=== PATIENT | female | born 1960 | race African-American/Black ===

== ENCOUNTER 2023-02-01 13:37 | Emergency (ER) | payer MEDICAID ==
[~2023-02-01] VITALS: Ht 154.9 cm; Wt 94.4 kg
[2023-02-01 14:08] LABS: Basophils # (auto) 0 10 ^3/uL (0-0.2); Basophils % (auto) 0.6 % (0.0-2.0); Eosinophils # (auto) 0.1 10 ^3/uL (0-0.8); Eosinophils % (auto) 2.2 % (0.0-7.0); Hematocrit 39.3 % (36.0-46.0); Hemoglobin 13.1 g/dL (12.2-16.2); Lymphocytes # (auto) 2.6 10 ^3/uL (0.4-5.4); Lymphocytes % (auto) 51.8 % (10.0-50.0); Mean Corpuscular Hemoglobin 28.7 pg (28.0-32.0); Mean Corpuscular Hgb Conc. 33.4 g/dL (32.0-36.0); Mean Corpuscular Volume 85.9 fL (80.0-100.0); Monocytes # (auto) 0.3 10 ^3/uL (0-1.3); Monocytes % (auto) 6.8 % (0.0-12.0); Neutrophils # (auto) 1.9 10 ^3/uL (1.6-8.6); Neutrophils % (auto) 38.6 % (37.0-80.0); Nucleated Red Blood Cells % 0.1 %; Red Blood Cells 4.58 10^6/uL (4.0-5.20); Red Cell Distribution Width 14.1 % (11.8-14.3)
[2023-02-01 14:30] LABS: Alanine Aminotransferase 20 U/L (7-40); Albumin 4.5 g/dL (3.2-4.8); Alkaline Phosphatase 114 U/L (46-116); Anion Gap 6 (5-15); Aspartate Aminotransferase 10 U/L (13-40); BUN/Creatinine Ratio 8.9 (10.0-20.0); Bilirubin, Total 0.4 mg/dL (0.2-1.0); Blood Urea Nitrogen 8 mg/dL (9-23); Calcium 10.2 mg/dL (8.7-10.4); Carbon Dioxide 26 mmol/L (20-30); Chloride 108 mmol/L (98-107); Glucose 105 mg/dL (74-106); Potassium 4.4 mmol/L (3.5-5.1); Sodium 140 mmol/L (136-145); Total Protein 7.1 g/dL (5.7-8.2)
[2023-02-01] MEDS ORDERED: MECL25CH38 PO (14:52)
[2023-02-01] MEDS ORDERED: MECLIZINE HCL 25 MG TAB PO ONE (15:00)
[2023-02-01 16:55] VITALS: BP 135/64; PULSE 75; RESP 18; TEMP 97.5; O2SAT 98
== END 2023-02-01 16:58 | disposition home or self-care (01) ==
LOC: ER 13:37
DX: R42 Dizziness and giddiness (principal); E11.9 Type 2 diabetes mellitus without complications; I10 Essential (primary) hypertension; J45.909 Unspecified asthma, uncomplicated; Z79.899 Other long term (current) drug therapy
CPT/HCPCS: 36415; 70450; 80053; 82962; 84484; 85025; 93005; 99284; J8597

== ENCOUNTER → 2024-07-21 | Day surgery (SDC) | payer MEDICAID ==
[2024-07-18 16:12] LABS: Urine Bacteria MANY /hpf (None Seen); Urine Blood Negative /uL (Negative); Urine Clarity Clear (Clear); Urine Color Colorless (Yellow); Urine Protein, UAD Negative (Negative); Urine Specific Gravity 1.007 (1.001-1.035); Urine Squamous Epithelial Cell FEW /hpf (<5); Urine Urobilinogen Normal (Negative); Urine WBC 1 /HPF (0-5)
[2024-07-18 16:13] LABS: Hemoglobin 13.6 g/dL (12.2-16.2); Mean Corpuscular Hemoglobin 28.5 pg (28.0-32.0); Mean Corpuscular Hgb Conc. 33.1 g/dL (32.0-36.0); Mean Corpuscular Volume 86.2 fL (80.0-100.0); Platelet Count (auto) 403 10^3/uL (140-450); Red Blood Cells 4.76 10^6/uL (4.0-5.20); Red Cell Distribution Width 13.7 % (11.8-14.3); White Blood Cell 5.3 10^3/uL (4.4-10.8)
[2024-07-18 16:33] LABS: Alanine Aminotransferase 15 U/L (7-40); Alkaline Phosphatase 89 U/L (46-116); Anion Gap 8 (5-15); Aspartate Aminotransferase 19 U/L (13-40); BUN/Creatinine Ratio 10.1 (10.0-20.0); Blood Urea Nitrogen 9 mg/dL (9-23); Carbon Dioxide 27 mmol/L (20-31); Chloride 105 mmol/L (98-107); Glucose 79 mg/dL (74-106); Potassium 3.6 mmol/L (3.5-5.1); Sodium 140 mmol/L (136-145); Total Protein 7.5 g/dL (5.7-8.2)
[2024-07-18 16:34] LABS: Albumin 4.9 g/dL (3.2-4.8); Band Neutrophils % (manual) 0; Basophils % (manual) 0 (0.0-2.0); Bilirubin, Total 0.6 mg/dL (0.2-1.0); Blast Cells 0; Calcium 10.4 mg/dL (8.7-10.4); Metamyelocytes % 0; Myelocytes % 0; Promyelocytes % 0; Reactive Lymphocytes 0
[2024-07-18 16:35] LABS: INR 0.96 (0.9-1.15); Partial Thromboplastin Time 23.6 SEC (24.5-34.5); Prothrombin Time 10.2 sec (9.3-11.8)
[2024-07-18 17:30] LABS: Eosinophils % (manual) 2 (0-7); Lymphocytes % (manual) 61 (10.0-50.0); Monocytes % (manual) 2 (0-12); Platelet Estimate Adequate
--- NOTE | 2024-07-19 09:47 | DVHHP ---
ADMIT DATE: 07/21/2024 DATE OF SURGERY: 07/21/2024 CHIEF COMPLAINT: Persistent postmenopausal bleeding. HISTORY OF PRESENT ILLNESS: This is a 63-year-old -[place] female. She is 6, para 4 with 2 abortions. The patient has had persistent episodic [id number] postmenopausal bleeding since 2022. Last ultrasound revealed that the endometrial thickness had increased from 4 mm on prior study to 6.8 mm, with endometrial fluid present. The patient is also on hormone replacement therapy with estrogen and progesterone due to menopausal syndrome. The patient is also HIV positive. Her last episode of bleeding was approximately 06/27/2024. PAST MEDICAL HISTORY: Asthma, autoimmune disease, diabetes, depression, chronic bronchitis, obesity, scoliosis and vertigo. PAST SURGICAL HISTORY: Carpal tunnel surgery. 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 MEDICATIONS: See list. ALLERGIES: No known drug allergies. SOCIAL HISTORY: The patient denies any alcohol, tobacco or illicit drug use. FAMILY HISTORY: Noncontributory. REVIEW OF SYSTEMS: The 14-point review of systems is negative as otherwise stated in the history of present illness. PHYSICAL EXAMINATION: VITAL SIGNS: Blood pressure 124/78. GENERAL: She is alert, pleasant, appears her stated age, in no acute distress. HEENT: Normocephalic, atraumatic. EOMI. NECK: Supple. No palpable masses or thyromegaly. CHEST: Symmetrical. Normal S1, S2 heart sounds. PULMONARY: Clear to auscultation bilaterally. ABDOMEN: Obese, soft, nontender, no palpable masses. EXTREMITIES: Without cyanosis or edema. PELVIC: Deferred to the operating room. ASSESSMENT: * Persistent postmenopausal bleeding. * Endometrial thickness of 6.8 mm, abnormal for menopausal status. * Menopausal syndrome, on combination estrogen and progestin hormone replacement therapy. * HIV positive. PLAN: The patient will be admitted for outpatient procedure. She has consented for: Pelvic exam under anesthesia, operative hysteroscopy, dilation and curettage, MyoSure polypectomy. The risks, benefits and alternatives to the procedure have been discussed with the patient and informed consent has been obtained. Risks of pain, bleeding, infection, injury to adjacent organs, possible uterine perforation all discussed with the patient and possible need for further subsequent treatment have all been reviewed with the patient. DO JADIEL Murphy/DENIS TID: [id number] RECEIPT: [id number] MTDD
[~2024-07-21] VITALS: Ht 154.9 cm; Wt 92.1 kg
[~2024-07-21] MED LIST: ALBU2TAB11 PO; APRE30TA PO; ATOR20TA50 PO; BENZ200C64 PO; BROMELX37 PO; BUPR-346 PO; CEL100T PO; DOLU50TA OR; DexAMETHasone SOD PHOS 10MG/1ML VIAL INJ ONE; EMTR1TAB6 PO; ESTR1TAB6 PO; GABA-339 PO; HYDROmorphone HCL 2 MG/ML VL/or syr IV PRN; MECL25CH38 PO; MEDR2.5T5 PO; MEPERIDINE HCL (25 MG/ML) 1ML VIAL ONE; METF-370 PO; METH-1181 PO; METH-867 PO; MIDAZOLAM HCL 2MG/2ML 2ml VIAL (1mg/ml) IV PRN; MIDAZOLAM HCL 2MG/2ML 2ml VIAL (1mg/ml) ONE; MORPHINE SULFATE 4 MG/ML SYR/VIAL IV PRN; OMEP20TA PO; ONDANSETRON HCL 4 MG/2 ML VIAL IV ONE; PERCOT PO; PROPOFOL 10 MG/ML 20 ML IV ONE; SERT-377 PO; ePHEDrine SULFATE 50 MG/ML AMP IV PRN; fentaNYL CITRATE 100 MCG/2 ML VL ONE; hydrALAZINE HCL 20 MG/ML VL IV PRN
--- NOTE | 2024-07-21 10:07 | DVHPN2 ---
Visit Coding OBGYN Date of Service: Jul 21, 2024 Billing Provider: CHARY DALEY DO LICENSE DISTRIBUTOR Common Visit Codes: PROCEDURE ONLY LICENSE DISTRIBUTOR Procedure Codes: 82816-T&C, DIAG OR THERAPEUTIC, 48550-[id number], SURGICAL CHARY DALEY DO Jul 21, 2024 10:07
[2024-07-21] MEDS: ceFAZolin 2 GM/D5W100ml 100 ML IV ONE (10:20)
[2024-07-21 11:05] VITALS: TEMP 99.5; O2SAT 100
[2024-07-21 11:45] VITALS: BP 135/60; PULSE 60; RESP 13; O2SAT 97
--- NOTE | 2024-07-21 12:24 | DVHOP ---
DATE OF SURGERY: 07/21/2024 PREOPERATIVE DIAGNOSES: * Persistent postmenopausal bleeding. * Thickened endometrium on ultrasound. * Suspected Endometrial Polyp FINAL DIAGNOSES: * Persistent postmenopausal bleeding. * Thickened endometrium on ultrasound. * Endometrial polyp. PROCEDURES PERFORMED: * Pelvic exam under anesthesia. * Operative hysteroscopy. * MyoSure polypectomy. * Sharp uterine dilatation and curettage. SURGEON: Luke Morton DO PULP BLEACHER: None. TYPE OF ANESTHESIA: General. ANESTHESIOLOGIST: Dr. Kaushik Chery M.D. DESCRIPTION OF FINDINGS: A normal sized uterus. Uterus is with moderate prolapse. Cervix prolapses to the hymenal ring. No gross evidence of malignancy. Uterine cavity sounds to 8 cm. Hysteroscopy revealed a normal contour endometrial cavity. Bilateral tubal ostia were successfully visualized. There was thickened lining of the endometrium noted on hysteroscopy without any tumors or lesions. There was a small less than 1 cm polypoid tissue fragment in the endometrial cavity that was removed by MyoSure polypectomy. TECHNICAL PROCEDURE: After informed consent was obtained, the patient was taken to the operating room where she underwent smooth induction of general anesthesia. The patient was placed in dorsal lithotomy position. The vagina, perineum were thoroughly prepped and the patient sterilely draped in the usual fashion. A pelvic exam was then performed under anesthesia with the above noted findings. A weighted speculum was placed in the patient's vagina. The anterior lip of the cervix was grasped with a single tooth tenaculum. Uterine cavity was sounded to 8 cm. The cervix was already soft, so minimal dilation was necessary. A 6 mm hysteroscope was inserted through the cervix and into the uterine cavity under direct visualization. Normal saline was used as the distention medium. Survey of the endocervix and endometrial cavities was performed with the above noted findings. Bilateral tubal ostia were seen. There was a thickened endometrium and a small tiny polyp. Using the MyoSure device, the polyp and part of the endometrium was resected. This was collected and submitted to pathology. Next, a sharp uterine curettage was performed and the endometrial curettings obtained on a Telfa pad and submitted to pathology. Repeat hysteroscopy revealed the cavity was intact with no further lesions noted. The hysteroscope was removed under direct visualization. The tenaculum was removed with no bleeding from the cervix. All instrumentation was removed from the patient's vagina. She was taken out of lithotomy position, awakened, and taken to recovery room in stable condition. INTRAOPERATIVE COMPLICATIONS: None. ESTIMATED BLOOD LOSS: Less than 50 mL POSTOPERATIVE CONDITION: Stable. SPECIMENS: Endometrial curettings and polyp. DO IZABELA Murphy TID: [id number] RECEIPT: [id number] [facility]
== END | disposition home or self-care (01) ==
LOC: SUR 06:10
PROVIDERS: ATTEND Obstetrics & Gynecology
DX: N95.0 Postmenopausal bleeding (principal); R93.89 Abnormal findings on diagnostic imaging of other specified body structures; N84.0 Polyp of corpus uteri; N81.2 Incomplete uterovaginal prolapse; N81.4 Uterovaginal prolapse, unspecified; J45.909 Unspecified asthma, uncomplicated; E11.9 Type 2 diabetes mellitus without complications; F32.A Depression, unspecified; M41.9 Scoliosis, unspecified; E66.9 Obesity, unspecified; Z68.38 Body mass index [BMI] 38.0-38.9, adult; Z79.890 Hormone replacement therapy; Z79.899 Other long term (current) drug therapy; Z87.440 Personal history of urinary (tract) infections; Z98.890 Other specified postprocedural states
CPT/HCPCS: 36415; 58558; 80053; 81001; 82962; 85007; 85027; 85610; 85730; 86850; 86900; 86901; 88305; J1100; J2175; J2250; J2704; J3010